=== PATIENT | male | born 1955 | race Caucasian/White ===

== ENCOUNTER → 2024-08-24 | Day surgery (SDC) | payer MEDICARE ==
[~2024-08-24] MED LIST: Dexamethasone 4 MG/ML 5 ML MDV ONE; HYDROmorphone 0.5 MG/0.5 ML Syringe IVPUSH PRN; Ketorolac 30 MG/ML SDV IVPUSH ONE; Lactated Ringers 1,000 ML ONE; Lidocaine 2% 11 ML Jelly Filled Syringe ONE; Midazolam 1 MG/ML 2 ML SDV ONE; Ondansetron 4 MG/2 ML SDV IVPUSH PRN; Ondansetron 4 MG/2 ML SDV ONE; Rocuronium 50 MG/5 ML Vial ONE; Ropivacaine 0.5% 5 MG/ML 30 ML SDV ONE; Sodium Chloride 0.9% 10 ML Syringe FLUSH PRN; Sodium Chloride 0.9% 10 ML Syringe FLUSH SCH; Sodium Chloride 0.9% 100 ML IV ONE; Sugammadex Sodium 200 MG/2 ML VIAL IV ONE; ceFAZolin 2 GM Vial ONE; dexmedeTOMIDine HCl 200 MCG/2 ML SDV ONE; ePHEDrine 50 MG/ML SDV ONE; fentaNYL 100 MCG/2 ML SDV IVPUSH PRN; fentaNYL 100 MCG/2 ML SDV ONE; propofoL 1,000 MG/100 ML 100 ML ONE; propofoL 500 MG/50 ML 50 ML ONE
[2024-08-24] MEDS: Lactated Ringers 1,000 ML IV SCH (08:10)
[2024-08-24] MEDS: oxyCODONE ER 10 MG TAB.ER PO ONE (08:15)
[2024-08-24] MEDS: Pregabalin 25 MG Cap PO ONE (08:16)
[2024-08-24] MEDS: Acetaminophen 325 MG Tab PO ONE (08:16)
[2024-08-24] MEDS: Tranexamic Acid 1,000 MG/10 ML Vial ONE (10:27)
[2024-08-24] MEDS: VANCOmycin 1 GM SDV ONE (10:27)
== END | disposition home or self-care (01) ==
LOC: JD.SDS 07:26
PROVIDERS: ATTEND Orthopaedic Surgery
DX: M19.012 Primary osteoarthritis, left shoulder (principal); M75.102 Unspecified rotator cuff tear or rupture of left shoulder, not specified as traumatic; I10 Essential (primary) hypertension; E78.5 Hyperlipidemia, unspecified; Z79.899 Other long term (current) drug therapy
CPT/HCPCS: 23472; 64415; 76000; 97165; 97535; A9270; C1713; C1769; C1776; J0690; J1100; J2250; J2405; J2704; J2795; J3010; J7120; 01638; J3490

== ENCOUNTER 2024-11-26 06:00 | Day surgery (SDC) | payer MEDICARE ==
[~2024-11-26 06:00] MED LIST changes: -Dexamethasone 4 MG/ML 5 ML MDV ONE; -HYDROmorphone 0.5 MG/0.5 ML Syringe IVPUSH PRN; -Ketorolac 30 MG/ML SDV IVPUSH ONE; -Lactated Ringers 1,000 ML ONE; -Lidocaine 2% 11 ML Jelly Filled Syringe ONE; -Midazolam 1 MG/ML 2 ML SDV ONE; -Ondansetron 4 MG/2 ML SDV IVPUSH PRN; -Ondansetron 4 MG/2 ML SDV ONE; -Rocuronium 50 MG/5 ML Vial ONE; -Ropivacaine 0.5% 5 MG/ML 30 ML SDV ONE; -Sodium Chloride 0.9% 100 ML IV ONE; -Sugammadex Sodium 200 MG/2 ML VIAL IV ONE; -ceFAZolin 2 GM Vial ONE; -dexmedeTOMIDine HCl 200 MCG/2 ML SDV ONE; -ePHEDrine 50 MG/ML SDV ONE; -fentaNYL 100 MCG/2 ML SDV IVPUSH PRN; -fentaNYL 100 MCG/2 ML SDV ONE; -propofoL 1,000 MG/100 ML 100 ML ONE; -propofoL 500 MG/50 ML 50 ML ONE
[2024-11-26] MEDS: Lactated Ringers 1,000 ML IV SCH (06:00)
[2024-11-26] MEDS ORDERED: Ketamine HCL/NACL, ISO-OSM 50 MG/5 ML Syringe ONE (06:48)
[2024-11-26] MEDS ORDERED: Propofol 200 MG/20 ML SDV ONE ×2 (06:48)
[2024-11-26] MEDS ORDERED: Glycopyrrolate 0.2 MG/ML 2 ML SDV ONE (06:53)
[2024-11-26] MEDS ORDERED: fentaNYL 100 MCG/2 ML SDV IVPUSH PRN (07:59)
[2024-11-26] MEDS ORDERED: Ondansetron 4 MG/2 ML SDV IVPUSH PRN (07:59)
[2024-11-26] MEDS ORDERED: Ketorolac 30 MG/ML SDV IVPUSH ONE (08:15)
== END 2024-11-26 08:00 | disposition home or self-care (01) ==
LOC: JD.SDS 06:00
PROVIDERS: ATTEND Orthopaedic Surgery
DX: M24.612 Ankylosis, left shoulder (principal); I10 Essential (primary) hypertension; E78.00 Pure hypercholesterolemia, unspecified; Z96.612 Presence of left artificial shoulder joint; Z79.899 Other long term (current) drug therapy
CPT/HCPCS: 76000; J1596; J2003; J2704; J3490; J7120